=== PATIENT | male | born 1970 | race Caucasian/White ===

== ENCOUNTER 2022-10-27 09:44 | Emergency (ER) | payer BC, OTHER ==
[~2022-10-27] VITALS: Ht 157.5 cm; Wt 79.4 kg
[2022-10-27 10:00] VITALS: BP 124/79
--- NOTE | 2022-10-27 10:19 | NUR ---
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 PATIENT COMPLAINT OF ITCHING AND IT STARTED SWELLING. WITH 5 OUT OF 10 PAIN.
[2022-10-27] MEDS ORDERED: LIDOCAINE 1% 500 MG/ 50 ML VIAL INJ ONE (10:50)
[2022-10-27] MEDS ORDERED: LIDOCAINE MPF 1% 5 ML ONE (10:57)
[2022-10-27] MEDS ORDERED: NAPR-1704 PO (11:33)
[2022-10-27] MEDS ORDERED: CEPH-588 PO (11:33)
--- NOTE | 2022-10-27 12:08 | NUR ---
Patient discharged with v/s stable. Written and verbal after care instructions given and explained. Patient alert, oriented and verbalized understanding of instructions. Ambulatory with steady gait. All questions addressed prior to discharge. ID band removed. Patient advised to follow up with PMD. Rx of CEPHALEXIN, NAPROXEN given. Patient educated on indication of medication including possible reaction and side effects. Opportunity to ask questions provided and answered.
== END 2022-10-27 12:08 | disposition home or self-care (01) ==
LOC: MED 09:44
DX: H00.035 Abscess of left lower eyelid (principal); I10 Essential (primary) hypertension; E11.9 Type 2 diabetes mellitus without complications; Z79.4 Long term (current) use of insulin; Z79.899 Other long term (current) drug therapy
CPT/HCPCS: 10060; 99284; J2001